=== PATIENT | female | born 1980 | race American Indian/Alaskan Native ===

== ENCOUNTER 2021-12-04 15:44 | Inpatient (IN) | payer MEDICAID ==
[2021-12-04] MEDS ORDERED: MORPHINE 4 MG/1 ML INJ IV ONE (15:55)
[2021-12-04] MEDS ORDERED: SODIUM CHLORIDE 0.9% 1000 ML 1,000 ML IV ONE (15:55)
[2021-12-04] MEDS ORDERED: ONDANSETRON 4 MG ODT TAB PO/SL ONE (15:55)
[2021-12-04] MEDS ORDERED: ONDANSETRON 4 MG/2 ML INJ IV ONE (16:13)
[2021-12-04] MEDS ORDERED: ONDANSETRON 4 MG/2 ML INJ ONE (16:14)
[2021-12-04 16:41] LABS: Hematocrit 37.6 % (30.3-42.9); Hemoglobin 12.9 gm/dl (10.1-14.3); Mean Corpuscular HGB Conc 34 % (30-34); Mean Corpuscular Volume 93 fl (79-97); Platelet Count 430 K/mm3 (140-440); Red Blood Count 4.05 M/mm3 (3.65-5.03); Red Cell Distribution Width 13.6 % (13.2-15.2)
[2021-12-04 16:48] LABS: INR 0.74 (0.87-1.13)
[2021-12-04 17:02] LABS: Alanine Aminotransferase 7 units/L (7-56); Albumin 4.3 g/dL (3.9-5); Blood Urea Nitrogen 4 mg/dL (7-17); Calcium 9.5 mg/dL (8.4-10.2); Hemolysis Index 1
[2021-12-04 17:03] LABS: BUN/Creatinine Ratio 7; Bilirubin,Direct < 0.2 mg/dL (0-0.2)
[2021-12-04] MEDS ORDERED: ERTAPENEM 1 GM in SODIUM CHLORIDE 0.9% 50 ML IV ONE (17:15)
--- NOTE | 2021-12-04 17:24 | Emergency Department Report ---
ED Abdominal Pain HPI - General Chief Complaint: Abdominal Pain Stated Complaint: ABD PAIN/N/V Time Seen by Provider: 12/04/21 15:55 Source: patient, EMS Mode of arrival: Wheelchair Limitations: No Limitations - History of Present Illness MD Complaint: abdominal pain -: Gradual, days(s) Location: RUQ Radiation: back Severity: moderate, severe Severity scale (0 -10): 10 Quality: aching, sharp Consistency: constant Improves With: eating Worsens With: eating Associated Symptoms: nausea, vomiting - Related Data Home Medications Medication Instructions Recorded Confirmed Last Taken No Known Home Medications [No 12/04/21 12/04/21 Unknown Reported Home Medications] Allergies Allergy/AdvReac Type Severity Reaction Status Date / Time No Known Allergies Allergy Verified 12/04/21 15:47 ED Review of Systems ROS: Stated complaint: ABD PAIN/N/V Other details as noted in HPI Constitutional: denies: chills, fever Eyes: denies: eye pain, eye discharge, vision change ENT: denies: ear pain, throat pain Respiratory: denies: cough, shortness of breath, wheezing Cardiovascular: denies: chest pain, palpitations Endocrine: no symptoms reported Gastrointestinal: denies: abdominal pain, nausea, diarrhea Genitourinary: denies: urgency, dysuria, discharge Musculoskeletal: denies: back pain, joint swelling, arthralgia Skin: denies: rash, lesions Neurological: denies: headache, weakness, paresthesias Psychiatric: denies: anxiety, depression Hematological/Lymphatic: denies: easy bleeding, easy bruising ED Past Medical Hx - Past Medical History Previous Medical History?: No Hx Hypertension: No - Social History Smoking Status: Unknown if ever smoked - Medications Home Medications: Home Medications Medication Instructions Recorded Confirmed Last Taken Type No Known Home Medications [No 12/04/21 12/04/21 Unknown History Reported Home Medications] ED Physical Exam - General Limitations: No Limitations General appearance: alert, in distress - Head Head exam: Present: atraumatic, normocephalic - Eye Eye exam: Present: normal appearance - ENT ENT exam: Present: mucous membranes moist - Neck Neck exam: Present: normal inspection - Respiratory Respiratory exam: Present: normal lung sounds bilaterally. Absent: respiratory distress - Cardiovascular Cardiovascular Exam: Present: regular rate, normal rhythm. Absent: systolic murmur, diastolic murmur, rubs, gallop - GI/Abdominal GI/Abdominal exam: Present: soft, tenderness, normal bowel sounds - Extremities Exam Extremities exam: Present: normal inspection - Back Exam Back exam: Present: normal inspection - Neurological Exam Neurological exam: Present: alert, oriented X3 - Psychiatric Psychiatric exam: Present: normal affect, normal mood - Skin Skin exam: Present: warm, dry, intact, normal color. Absent: rash ED Course Vital Signs 12/04/21 12/04/21 12/04/21 15:45 16:02 16:15 Temperature 99.1 F Pulse Rate 87 94 H Respiratory 18 19 Rate Blood Pressure 117/69 Blood Pressure 144/88 [Left] O2 Sat by Pulse 98 100 100 Oximetry - Reevaluation(s) Reevaluation #1: 12/04/21 17:22 work up showed elevated wbc , US showed gall stones, abx given , spoke with dr Landin ED Medical Decision Making - Lab Data Result diagrams: 12/04/21 16:03 12/04/21 16:03 Critical care attestation.: If time is entered above; I have spent that time in minutes in the direct care of this critically ill patient, excluding procedure time. ED Disposition Clinical Impression: Gall stones, Leukocytosis Disposition: ADMITTED INPATIENT Is pt being admited?: Yes Does the pt Need Aspirin: No Condition: Stable Instructions: Abdominal Pain (ED), Cholelithiasis
[2021-12-04 17:45] LABS: Band Neutrophils # (Manual) 0.2 K/mm3; Basophils % (Manual) 0 % (0.0-1.8); Eosinophils % (Manual) 0 % (0.0-4.3); Total Cells Counted 100
[2021-12-04 17:46] LABS: Platelet Clumps Rare; Platelet Estimate Consistent w Auto; RBC Morphology Normal
[2021-12-04] MEDS ORDERED: MORPHINE 2 MG/1 ML INJ IV ONE (17:59)
--- NOTE | 2021-12-04 18:02 | Ultrasound Report ---
ULTRASOUND ABDOMEN, LIMITED (RIGHT UPPER QUADRANT) INDICATION / CLINICAL INFORMATION: pain. COMPARISON: None available. FINDINGS: PANCREAS: Visualized portion shows no significant abnormality. LIVER: No significant abnormality. Hepatopedal flow within the portal vein. GALLBLADDER: Cholelithiasis. No pericholecystic fluid. BILE DUCTS: No significant abnormality. Common bile duct measures 2 mm. FREE FLUID: None. ADDITIONAL FINDINGS: None. IMPRESSION: 1. Cholelithiasis without cholecystitis. Signer Name: Ian Mackenzie DO Signed: 12/04/2021 5:57 PM Workstation Name: [id number]
--- NOTE | 2021-12-04 18:50 | Cat Scan Report ---
CT ABDOMEN AND PELVIS WITH CONTRAST INDICATION / CLINICAL INFORMATION: Unspecified abdominal pain. TECHNIQUE: Axial CT images were obtained through the abdomen and pelvis after 100 cc Omnipaque [address] scans at this location are performed using CT dose reduction for ALARA by means of automated exposure control. COMPARISON: None available. FINDINGS: LOWER CHEST: No significant abnormality. LIVER: There is an 8 mm lateral segment left hepatic lobe cyst on image 36 of series 2. No other sign ificant abnormality. GALLBLADDER: There is cholelithiasis without evidence of acute cholecystitis. BILE DUCTS: No significant abnormality. PANCREAS: No significant abnormality. SPLEEN: No significant abnormality. ADRENALS: No significant abnormality. RIGHT KIDNEY/URETER: No significant abnormality. LEFT KIDNEY/URETER: No significant abnormality. STOMACH/SMALL BOWEL: No significant abnormality. COLON: No significant abnormality. APPENDIX: No significant abnormality. PERITONEUM: No free fluid. No free air. No fluid collection. LYMPH NODES: No significant adenopathy. VASCULATURE: No significant abnormality. URINARY BLADDER: No significant abnormality. REPRODUCTIVE ORGANS: Multiple probable uterine fibroids are seen with a credit resolution representative mass located i nferiorly to the right of midline on image 118 of series 2 measuring up to 2.8 cm. No significant adn exal abnormality. ADDITIONAL FINDINGS: None. BONES: No significant abnormality IMPRESSION: 1. No acute abnormality of the abdomen or pelvis. 2. Cholelithiasis without evidence of acute cholecystitis. 3. Additional findings as above. Signer Name: Demar Calderon MD Signed: 12/04/2021 6:46 PM Workstation Name: [id number]
[2021-12-04] MEDS ORDERED: ACETAMINOPHEN 325 MG TAB PO PRN (18:54)
[2021-12-04] MEDS ORDERED: METOCLOPRAMIDE 10 MG/2 ML INJ IV PRN (18:54)
[2021-12-04] MEDS ORDERED: ONDANSETRON 4 MG/2 ML INJ IV PRN (18:54)
--- NOTE | 2021-12-04 19:36 | History and Physical Report ---
History of Present Illness Date of examination: 12/04/21 Date of admission: December 04, 2021 Chief complaint: Right upper quadrant pain for 2 days History of present illness: 41-year-old female with no significant past medical history and not on any medications presents with right upper quadrant pain since yesterday. Associated with nausea and vomiting. Vomited about 3-4 times. Pain is about 8 on a scale of 1-10. Sharp and intermittent in nature. Radiated to the flank. No fever or chills. In mild distress. No respiratory symptoms. No diarrhea. No shortness of breath. - Past Medical History No Past surgical history No - Social History Smoking Status: Unknown if ever smoked -Family history --Htn - Medications --Home Medications: Home Medications Medication Instructions Recorded Confirmed Last Taken Type No Known Home Medications [No 12/04/21 12/04/21 Unknown History Reported Home Medications] Review of Systems ROS: Stated complaint: ABD PAIN/N/V Other details as noted in HPI Constitutional: denies: chills, fever Eyes: denies: eye pain, eye discharge, vision change ENT: denies: ear pain, throat pain Respiratory: denies: cough, shortness of breath, wheezing Cardiovascular: denies: chest pain, palpitations Endocrine: no symptoms reported Gastrointestinal: denies: abdominal pain, nausea, diarrhea Genitourinary: denies: urgency, dysuria, discharge Musculoskeletal: denies: back pain, joint swelling, arthralgia Skin: denies: rash, lesions Neurological: denies: headache, weakness, paresthesias Psychiatric: denies: anxiety, depression Hematological/Lymphatic: denies: easy bleeding, easy bruising Medications and Allergies Allergies Allergy/AdvReac Type Severity Reaction Status Date / Time No Known Allergies Allergy Verified 12/04/21 15:47 Home Medications Medication Instructions Recorded Confirmed Last Taken Type No Known Home Medications [No 12/04/21 12/04/21 Unknown History Reported Home Medications] Exam - Constitutional Vitals: Temp Pulse Resp BP Pulse Ox 99.1 F 84 0 L 159/104 100 12/04/21 15:45 12/04/21 16:30 12/04/21 17:30 12/04/21 17:30 12/04/21 17:30 Results - Labs CBC & Chem 7: 12/05/21 05:44 12/05/21 05:44 Labs: Laboratory Last Values WBC 19.3 K/mm3 (4.5-11.0) H 12/04/21 16:03 RBC 4.05 M/mm3 (3.65-5.03) 12/04/21 16:03 Hgb 12.9 gm/dl (10.1-14.3) 12/04/21 16:03 Hct 37.6 % (30.3-42.9) 12/04/21 16:03 MCV 93 fl (79-97) 12/04/21 16:03 MCH 32 pg (28-32) 12/04/21 16:03 MCHC 34 % (30-34) 12/04/21 16:03 RDW 13.6 % (13.2-15.2) 12/04/21 16:03 Plt Count 430 K/mm3 (140-440) 12/04/21 16:03 Add Manual Diff Complete 12/04/21 16:03 Total Counted 100 12/04/21 16:03 Seg Neutrophils % Manufacturing Applications Engineer 12/04/21 16:03 Seg Neuts % (Manual) 89.0 % (40.0-70.0) H 12/04/21 16:03 Band Neutrophils % 1.0 % 12/04/21 16:03 Lymphocytes % (Manual) 8.0 % (13.4-35.0) L 12/04/21 16:03 Reactive Lymphs % (Man) 0 % 12/04/21 16:03 Monocytes % (Manual) 2.0 % (0.0-7.3) 12/04/21 16:03 Eosinophils % (Manual) 0 % (0.0-4.3) 12/04/21 16:03 Basophils % (Manual) 0 % (0.0-1.8) 12/04/21 16:03 Metamyelocytes % 0 % 12/04/21 16:03 Myelocytes % 0 % 12/04/21 16:03 Promyelocytes % 0 % 12/04/21 16:03 Blast Cells % 0 % 12/04/21 16:03 Nucleated RBC % Not Reportable 12/04/21 16:03 Seg Neutrophils # Man 17.2 K/mm3 (1.8-7.7) H 12/04/21 16:03 Band Neutrophils # 0.2 K/mm3 12/04/21 16:03 Lymphocytes # (Manual) 1.5 K/mm3 (1.2-5.4) 12/04/21 16:03 Abs React Lymphs (Man) 0.0 K/mm3 12/04/21 16:03 Monocytes # (Manual) 0.4 K/mm3 (0.0-0.8) 12/04/21 16:03 Eosinophils # (Manual) 0.0 K/mm3 (0.0-0.4) 12/04/21 16:03 Basophils # (Manual) 0.0 K/mm3 (0.0-0.1) 12/04/21 16:03 Metamyelocytes # 0.0 K/mm3 12/04/21 16:03 Myelocytes # 0.0 K/mm3 12/04/21 16:03 Promyelocytes # 0.0 K/mm3 12/04/21 16:03 Blast Cells # 0.0 K/mm3 12/04/21 16:03 WBC Morphology Not Reportable 12/04/21 16:03 Hypersegmented Neuts Not Reportable 12/04/21 16:03 Hyposegmented Neuts Not Reportable 12/04/21 16:03 Hypogranular Neuts Not Reportable 12/04/21 16:03 Smudge Cells Not Reportable 12/04/21 16:03 Toxic Granulation Not Reportable 12/04/21 16:03 Toxic Vacuolation Not Reportable 12/04/21 16:03 Dohle Bodies Not Reportable 12/04/21 16:03 Pelger-Huet Anomaly Not Reportable 12/04/21 16:03 Kimi Rods Not Reportable 12/04/21 16:03 Platelet Estimate Consistent w auto 12/04/21 16:03 Clumped Platelets Rare 12/04/21 16:03 Plt Clumps, EDTA Not Reportable 12/04/21 16:03 Large Platelets Not Reportable 12/04/21 16:03 Giant Platelets Not Reportable 12/04/21 16:03 Platelet Satelliting Not Reportable 12/04/21 16:03 Plt Morphology Comment Not Reportable 12/04/21 16:03 RBC Morphology Normal 12/04/21 16:03 Dimorphic RBCs Not Reportable 12/04/21 16:03 Polychromasia Not Reportable 12/04/21 16:03 Hypochromasia Not Reportable 12/04/21 16:03 Poikilocytosis Not Reportable 12/04/21 16:03 Anisocytosis Not Reportable 12/04/21 16:03 Microcytosis Not Reportable 12/04/21 16:03 Macrocytosis Not Reportable 12/04/21 16:03 Spherocytes Not Reportable 12/04/21 16:03 Pappenheimer Bodies Not Reportable 12/04/21 16:03 Sickle Cells Not Reportable 12/04/21 16:03 Target Cells Not Reportable 12/04/21 16:03 Tear Drop Cells Not Reportable 12/04/21 16:03 Ovalocytes Not Reportable 12/04/21 16:03 Helmet Cells Not Reportable 12/04/21 16:03 [place] Bodies Not Reportable 12/04/21 16:03 [place] Rings Not Reportable 12/04/21 16:03 Valente Cells Not Reportable 12/04/21 16:03 Bite Cells Not Reportable 12/04/21 16:03 Crenated Cell Not Reportable 12/04/21 16:03 Elliptocytes Not Reportable 12/04/21 16:03 Acanthocytes (Spur) Not Reportable 12/04/21 16:03 Rouleaux Not Reportable 12/04/21 16:03 Hemoglobin C Crystals Not Reportable 12/04/21 16:03 Schistocytes Not Reportable 12/04/21 16:03 Malaria parasites Not Reportable 12/04/21 16:03 Dima Bodies Not Reportable 12/04/21 16:03 Hem Pathologist Commnt No 12/04/21 16:03 PT 11.2 Sec. (12.2-14.9) L 12/04/21 16:03 INR 0.74 (0.87-1.13) L 12/04/21 16:03 Sodium 129 mmol/L (137-145) L 12/04/21 16:03 Potassium 3.8 mmol/L (3.6-5.0) 12/04/21 16:03 Chloride 95.5 mmol/L (98-107) L 12/04/21 16:03 Carbon Dioxide 18 mmol/L (22-30) L 12/04/21 16:03 Anion Gap 19 mmol/L 12/04/21 16:03 BUN 4 mg/dL (7-17) L 12/04/21 16:03 Creatinine 0.6 mg/dL (0.6-1.2) 12/04/21 16:03 Estimated GFR > 60 ml/min 12/04/21 16:03 BUN/Creatinine Ratio 7 % 12/04/21 16:03 Glucose 127 mg/dL (65-100) H 12/04/21 16:03 Calcium 9.5 mg/dL (8.4-10.2) 12/04/21 16:03 Total Bilirubin 0.40 mg/dL (0.1-1.2) 12/04/21 16:03 Direct Bilirubin < 0.2 mg/dL (0-0.2) 12/04/21 16:03 Indirect Bilirubin 0.2 mg/dL 12/04/21 16:03 AST 11 units/L (5-40) 12/04/21 16:03 ALT 7 units/L (7-56) 12/04/21 16:03 Alkaline Phosphatase 57 units/L (35-129) 12/04/21 16:03 C-Reactive Protein 0.20 mg/dL (0.00-1.30) 12/04/21 16:03 Total Protein 7.6 g/dL (6.3-8.2) 12/04/21 16:03 Albumin 4.3 g/dL (3.9-5) 12/04/21 16:03 Albumin/Globulin Ratio 1.3 % 12/04/21 16:03 Amylase 69 units/L (27-131) 12/04/21 16:03 Lipase 17 units/L (13-60) 12/04/21 16:03 HCG, Qual Negative (Negative) 12/04/21 16:03 Assessment and Plan Advance Directives: Yes (Full code) VTE prophylaxis?: Chemical Plan of care discussed with patient/family: Yes - Patient Problems (1) SIRS (systemic inflammatory response syndrome) Current Visit: Yes Status: Acute Plan to address problem: Patient has a high white count of 19,000 Patient initiated on IV Zosyn for intra-abdominal infection (2) Acute cholecystitis Current Visit: Yes Status: Acute Plan to address problem: Patient initiated on IV antibiotics Surgery consult for possible cholecystectomy (3) Hyponatremia Current Visit: Yes Status: Acute Plan to address problem: IV normal saline for now (4) DVT prophylaxis Current Visit: Yes Status: Acute Plan to address problem: On anticoagulation GI prophylaxis (5) Advance care planning Current Visit: Yes Status: Acute Plan to address problem: Disease education conducted, care plan discussed, diagnosis discussed, prognosis discussed with the patient. Patient is full code. Patient acknowledges understanding and agreement with care plan. +30 minutes.
[2021-12-04] MEDS: HYDROmorphone 1 MG/1 ML INJ IV PRN ×2 (19:46→23:49)
[2021-12-04 19:58] LABS: Bilirubin,Urine NEG (Negative); Color,Urine Yellow (Yellow); Protein,Urine <15 mg/dL mg/dL (Negative); Urobilinogen,Urine < 2.0 mg/dL (<2.0)
[2021-12-04 20:55] LABS: Bacteria,Urine 1+ /HPF (Negative); Blood,Urine LG (Negative); Mucus,Urine FEW /HPF
[2021-12-04 20:56] LABS: HCG Qualitative,Urine Negative (Negative)
[2021-12-04] MEDS: D5W/0.9% NACL 1,000 ML IV SCH (22:29)
[2021-12-04] MEDS: FAMOTIDINE 20 MG/2 ML INJ IV SCH (22:29)
[2021-12-04] MEDS: PIPERACIL/TAZOBACTA 4.5/NS 100 4.5 GM/100 ML VIAL IV SCH (22:29)
[2021-12-04] MEDS: HEPARIN 5,000 UNIT/1 ML VIAL SUB-Q SCH (22:30)
[2021-12-05] MEDS: HYDROmorphone 1 MG/1 ML INJ IV PRN ×3 (04:23→20:29)
[2021-12-05] MEDS: PIPERACIL/TAZOBACTA 4.5/NS 100 4.5 GM/100 ML VIAL IV SCH ×3 (05:30→22:56)
[2021-12-05 06:25] LABS: Basophils % (Auto) 0.2 % (0.0-1.8); Eosinophils % (Auto) 0.3 % (0.0-4.3); Hematocrit 34.9 % (30.3-42.9); Hemoglobin 12.2 gm/dl (10.1-14.3); Lymphocytes # (Auto) 1.8 K/mm3 (1.2-5.4); Lymphocytes % (Auto) 11.6 % (13.4-35.0); Mean Corpuscular HGB Conc 35 % (30-34); Mean Corpuscular Volume 93 fl (79-97); Monocytes # (Auto) 1.4 K/mm3 (0.0-0.8); Monocytes % (Auto) 8.7 % (0.0-7.3); Platelet Count 436 K/mm3 (140-440); Red Blood Count 3.77 M/mm3 (3.65-5.03); Red Cell Distribution Width 13.1 % (13.2-15.2)
[2021-12-05 06:40] LABS: Alanine Aminotransferase 11 units/L (7-56); Albumin 3.7 g/dL (3.9-5); Blood Urea Nitrogen 5 mg/dL (7-17); Calcium 8.7 mg/dL (8.4-10.2); Hemolysis Index 3
[2021-12-05 06:41] LABS: BUN/Creatinine Ratio 8
--- NOTE | 2021-12-05 07:44 | Consultation ---
History of Present Illness Consult date: 12/05/21 Reason for consult: gallstones Chief complaint: Acute cholecystitis with cholelithiasis and elevated white count - History of present illness History of present illness: 41-year-old female with no significant past medical history and not on any medications presents with right upper quadrant pain since yesterday. Associated with nausea and vomiting. Vomited about 3-4 times. No history of pancreatitis or yellow jaundice. Patient notes a similar episode of severe pain about a year ago. She did not present to the hospital at that time. Pain is about 8 on a scale of 1-10. Sharp and intermittent in nature. Radiated to the flank. No fever or chills. In mild distress. No respiratory symptoms. No diarrhea. No shortness of breath. Medications and Allergies Allergies Allergy/AdvReac Type Severity Reaction Status Date / Time No Known Allergies Allergy Verified 12/04/21 15:47 Home Medications Medication Instructions Recorded Confirmed Last Taken Type No Known Home Medications [No 12/04/21 12/04/21 Unknown History Reported Home Medications] Active Meds: Active Medications Acetaminophen (Acetaminophen 325 Mg Tab) 650 mg PO Q4H PRN PRN Reason: Pain MILD(1-3)/Fever >100.5/FLORES Famotidine (Famotidine 20 Mg/2 Ml Inj) 20 mg IV BID JOSH Last Admin: 12/04/21 22:29 Dose: 20 mg Heparin Sodium (Porcine) (Heparin 5,000 Unit/1 Ml Vial) 5,000 unit SUB-Q Q12HR JOSH Last Admin: 12/04/21 22:30 Dose: 5,000 unit Hydromorphone HCl (Hydromorphone 1 Mg/1 Ml Inj) 0.5 mg IV Q3H PRN PRN Reason: Pain , Severe (7-10) Last Admin: 12/05/21 04:23 Dose: 0.5 mg Dextrose/Sodium Chloride (D5ns) 1,000 mls @ 75 mls/hr IV DIRECT JOSH Last Admin: 12/04/21 22:29 Dose: 75 mls/hr Piperacillin Sod/Tazobactam Sod (Zosyn/Ns 4.5gm/100ml) 4.5 gm in 100 mls @ 200 mls/hr IV Q8HR JOSH; Protocol Last Admin: 12/05/21 05:30 Dose: 200 mls/hr Metoclopramide HCl (Metoclopramide 10 Mg/2 Ml Inj) 10 mg IV Q6H PRN PRN Reason: Nausea And Vomiting Morphine Sulfate (Morphine 2 Mg/1 Ml Inj) 2 mg IV Q4H PRN PRN Reason: Pain, Moderate (4-6) Ondansetron HCl (Ondansetron 4 Mg/2 Ml Inj) 4 mg IV Q3H PRN PRN Reason: Nausea And Vomiting Sodium Chloride (Sodium Chloride 0.9% 10 Ml Flush Syringe) 10 ml IV BID JOSH Last Admin: 12/04/21 22:30 Dose: 10 ml Sodium Chloride (Sodium Chloride 0.9% 10 Ml Flush Syringe) 10 ml IV PRN PRN PRN Reason: LINE FLUSH Exam Vital Signs Temp Pulse Resp BP Pulse Ox 99.1 F 87 18 144/88 98 12/04/21 15:45 12/04/21 15:45 12/04/21 15:45 12/04/21 15:45 12/04/21 15:45 - General physical appearance Positive: well developed - Eyes Positive: PERRL - Neck Positive: no masses, no bruits, trachea midline - Respiratory Positive: normal expansion - Cardiovascular Rhythm: regular - Extremities Extremities: no ischemia, No edema - Abdomen Abdomen: Present: tender, guarding, other (Positive Estrada sign right upper quadrant tenderness) Results - Labs 12/05/21 05:44 12/05/21 05:44 Abnormal lab results 12/04/21 12/04/21 12/04/21 Range/Units 16:03 16:03 16:03 WBC 19.3 H (4.5-11.0) K/mm3 MCHC (30-34) % RDW (13.2-15.2) % Lymph % (Auto) (13.4-35.0) % Jay % (Auto) (0.0-7.3) % Jay # (Auto) (0.0-0.8) K/mm3 Seg Neutrophils % (40.0-70.0) % Seg Neuts % (Manual) 89.0 H (40.0-70.0) % Lymphocytes % (Manual) 8.0 L (13.4-35.0) % Seg Neutrophils # (1.8-7.7) K/mm3 Seg Neutrophils # Man 17.2 H (1.8-7.7) K/mm3 PT 11.2 L (12.2-14.9) Sec. INR 0.74 L (0.87-1.13) Sodium 129 L (137-145) mmol/L Potassium (3.6-5.0) mmol/L Chloride 95.5 L (98-107) mmol/L Carbon Dioxide 18 L (22-30) mmol/L BUN 4 L (7-17) mg/dL Glucose 127 H (65-100) mg/dL Albumin (3.9-5) g/dL Urine pH (5.0-7.0) U Epithel Cells (Auto) (0-13.0) /HPF 12/04/21 12/05/21 12/05/21 Range/Units 19:38 05:44 05:44 WBC 15.9 H (4.5-11.0) K/mm3 MCHC 35 H (30-34) % RDW 13.1 L (13.2-15.2) % Lymph % (Auto) 11.6 L (13.4-35.0) % Jay % (Auto) 8.7 H (0.0-7.3) % Jay # (Auto) 1.4 H (0.0-0.8) K/mm3 Seg Neutrophils % 79.2 H (40.0-70.0) % Seg Neuts % (Manual) (40.0-70.0) % Lymphocytes % (Manual) (13.4-35.0) % Seg Neutrophils # 12.6 H (1.8-7.7) K/mm3 Seg Neutrophils # Man (1.8-7.7) K/mm3 PT (12.2-14.9) Sec. INR (0.87-1.13) Sodium 136 L D (137-145) mmol/L Potassium 3.4 L (3.6-5.0) mmol/L Chloride (98-107) mmol/L Carbon Dioxide (22-30) mmol/L BUN 5 L (7-17) mg/dL Glucose 112 H (65-100) mg/dL Albumin 3.7 L (3.9-5) g/dL Urine pH 8.0 H (5.0-7.0) U Epithel Cells (Auto) 107.0 H (0-13.0) /HPF Diabetes panel 12/04/21 12/05/21 Range/Units 16:03 05:44 Sodium 129 L 136 L D (137-145) mmol/L Potassium 3.8 3.4 L (3.6-5.0) mmol/L Chloride 95.5 L 101.8 (98-107) mmol/L Carbon Dioxide 18 L 22 (22-30) mmol/L BUN 4 L 5 L (7-17) mg/dL Creatinine 0.6 0.6 (0.6-1.2) mg/dL Glucose 127 H 112 H (65-100) mg/dL Calcium 9.5 8.7 (8.4-10.2) mg/dL AST 11 15 (5-40) units/L ALT 7 11 (7-56) units/L Alkaline Phosphatase 57 46 (35-129) units/L Total Protein 7.6 6.5 (6.3-8.2) g/dL Albumin 4.3 3.7 L (3.9-5) g/dL Calcium panel 12/04/21 12/05/21 Range/Units 16:03 05:44 Calcium 9.5 8.7 (8.4-10.2) mg/dL Albumin 4.3 3.7 L (3.9-5) g/dL Pituitary panel 12/04/21 12/05/21 Range/Units 16:03 05:44 Sodium 129 L 136 L D (137-145) mmol/L Potassium 3.8 3.4 L (3.6-5.0) mmol/L Chloride 95.5 L 101.8 (98-107) mmol/L Carbon Dioxide 18 L 22 (22-30) mmol/L BUN 4 L 5 L (7-17) mg/dL Creatinine 0.6 0.6 (0.6-1.2) mg/dL Glucose 127 H 112 H (65-100) mg/dL Calcium 9.5 8.7 (8.4-10.2) mg/dL Adrenal panel 12/04/21 12/05/21 Range/Units 16:03 05:44 Sodium 129 L 136 L D (137-145) mmol/L Potassium 3.8 3.4 L (3.6-5.0) mmol/L Chloride 95.5 L 101.8 (98-107) mmol/L Carbon Dioxide 18 L 22 (22-30) mmol/L BUN 4 L 5 L (7-17) mg/dL Creatinine 0.6 0.6 (0.6-1.2) mg/dL Glucose 127 H 112 H (65-100) mg/dL Calcium 9.5 8.7 (8.4-10.2) mg/dL Total Bilirubin 0.40 0.50 (0.1-1.2) mg/dL AST 11 15 (5-40) units/L ALT 7 11 (7-56) units/L Alkaline Phosphatase 57 46 (35-129) units/L Total Protein 7.6 6.5 (6.3-8.2) g/dL Albumin 4.3 3.7 L (3.9-5) g/dL Assessment and Plan Cholecystitis with cholelithiasis markedly elevated white count. Adv to clears then n.p.o. post midnight. continue continue IV antibiotics. Clinical signs of improvement are not seen patient will go to the OR in a.m.
[2021-12-05] MEDS ORDERED: SODIUM CHLORIDE 0.9% 1000 ML 1,000 ML IV SCH (08:00)
[2021-12-05] MEDS: HEPARIN 5,000 UNIT/1 ML VIAL SUB-Q SCH ×2 (09:21→22:56)
[2021-12-05] MEDS: FAMOTIDINE 20 MG/2 ML INJ IV SCH ×2 (09:21→22:56)
--- NOTE | 2021-12-05 11:27 | Progress Note ---
Assessment and Plan Assessment and plan: #Acute cholecystitis #Sepsis secondary to acute cholecystitis Heart rate 103, WBC 15.9 Abdominal ultrasound revealing cholelithiasis without acute cholecystitis General surgery consulted; appreciate recs Continue Zosyn 4.5 g every 8 hours Continue IV fluid resuscitation, antiemetics, and analgesics as needed Continue to monitor #Obesity #Weight loss counseling #Exercise counseling - BMI 32.1 - Counseled patient on the importance of weight loss, incorporating exercise, and dietary changes (lean meats, fresh fruits and vegetables, and water intake). Patient expresses understanding. - Time: +15 min #Advanced care planning -Disease education conducted, care plan discussed, diagnoses discussed, prognosis discussed, and patient acknowledges understanding with care plan -Time: +30 min Disposition Plan: Continue medical management Total Time Spent with Patient (Minutes): 30 minutes History Interval history: No acute events overnight. Hospitalist Physical - Constitutional Vitals: Temp Pulse Resp BP Pulse Ox 98.6 F 103 H 18 111/76 99 12/05/21 05:09 12/05/21 04:20 12/05/21 05:09 12/05/21 05:09 12/05/21 04:20 General appearance: Present: mild distress, well-nourished, obese - EENT Eyes: Present: PERRL, EOM intact ENT: hearing intact, clear oral mucosa, dentition normal - Neck Neck: Present: supple, normal ROM - Respiratory Respiratory effort: normal Respiratory: bilateral: CTA - Cardiovascular Rhythm: regular Heart Sounds: Present: S1 & S2 - Extremities Extremities: no ischemia, pulses intact, pulses symmetrical, No edema, normal temperature, normal color, Full ROM Peripheral Pulses: within normal limits - Abdominal General gastrointestinal: soft, tender, non-distended, normal bowel sounds Localized gastrointestinal: tender: RUQ - Integumentary Integumentary: Present: clear, warm, dry - Psychiatric Psychiatric: appropriate mood/affect, intact judgment & insight, memory intact, cooperative - Neurologic Neurologic: CNII-XII intact, moves all extremities - Allied Health Allied health notes reviewed: nursing Results - Labs CBC & Chem 7: 12/05/21 05:44 12/05/21 05:44 Labs: Laboratory Last Values WBC 15.9 K/mm3 (4.5-11.0) H 12/05/21 05:44 RBC 3.77 M/mm3 (3.65-5.03) 12/05/21 05:44 Hgb 12.2 gm/dl (10.1-14.3) 12/05/21 05:44 Hct 34.9 % (30.3-42.9) 12/05/21 05:44 MCV 93 fl (79-97) 12/05/21 05:44 MCH 32 pg (28-32) 12/05/21 05:44 MCHC 35 % (30-34) H 12/05/21 05:44 RDW 13.1 % (13.2-15.2) L 12/05/21 05:44 Plt Count 436 K/mm3 (140-440) 12/05/21 05:44 Lymph % (Auto) 11.6 % (13.4-35.0) L 12/05/21 05:44 [place] % (Auto) 8.7 % (0.0-7.3) H 12/05/21 05:44 Eos % (Auto) 0.3 % (0.0-4.3) 12/05/21 05:44 Baso % (Auto) 0.2 % (0.0-1.8) 12/05/21 05:44 Lymph # (Auto) 1.8 K/mm3 (1.2-5.4) 12/05/21 05:44 [place] # (Auto) 1.4 K/mm3 (0.0-0.8) H 12/05/21 05:44 Eos # (Auto) 0.0 K/mm3 (0.0-0.4) 12/05/21 05:44 Baso # (Auto) 0.0 K/mm3 (0.0-0.1) 12/05/21 05:44 Add Manual Diff Complete 12/04/21 16:03 Total Counted 100 12/04/21 16:03 Seg Neutrophils % 79.2 % (40.0-70.0) H 12/05/21 05:44 Seg Neuts % (Manual) 89.0 % (40.0-70.0) H 12/04/21 16:03 Band Neutrophils % 1.0 % 12/04/21 16:03 Lymphocytes % (Manual) 8.0 % (13.4-35.0) L 12/04/21 16:03 Reactive Lymphs % (Man) 0 % 12/04/21 16:03 Monocytes % (Manual) 2.0 % (0.0-7.3) 12/04/21 16:03 Eosinophils % (Manual) 0 % (0.0-4.3) 12/04/21 16:03 Basophils % (Manual) 0 % (0.0-1.8) 12/04/21 16:03 Metamyelocytes % 0 % 12/04/21 16:03 Myelocytes % 0 % 12/04/21 16:03 Promyelocytes % 0 % 12/04/21 16:03 Blast Cells % 0 % 12/04/21 16:03 Nucleated RBC % Not Reportable 12/04/21 16:03 Seg Neutrophils # 12.6 K/mm3 (1.8-7.7) H 12/05/21 05:44 Seg Neutrophils # Man 17.2 K/mm3 (1.8-7.7) H 12/04/21 16:03 Band Neutrophils # 0.2 K/mm3 12/04/21 16:03 Lymphocytes # (Manual) 1.5 K/mm3 (1.2-5.4) 12/04/21 16:03 Abs React Lymphs (Man) 0.0 K/mm3 12/04/21 16:03 Monocytes # (Manual) 0.4 K/mm3 (0.0-0.8) 12/04/21 16:03 Eosinophils # (Manual) 0.0 K/mm3 (0.0-0.4) 12/04/21 16:03 Basophils # (Manual) 0.0 K/mm3 (0.0-0.1) 12/04/21 16:03 Metamyelocytes # 0.0 K/mm3 12/04/21 16:03 Myelocytes # 0.0 K/mm3 12/04/21 16:03 Promyelocytes # 0.0 K/mm3 12/04/21 16:03 Blast Cells # 0.0 K/mm3 12/04/21 16:03 WBC Morphology Not Reportable 12/04/21 16:03 Hypersegmented Neuts Not Reportable 12/04/21 16:03 Hyposegmented Neuts Not Reportable 12/04/21 16:03 Hypogranular Neuts Not Reportable 12/04/21 16:03 Smudge Cells Not Reportable 12/04/21 16:03 Toxic Granulation Not Reportable 12/04/21 16:03 Toxic Vacuolation Not Reportable 12/04/21 16:03 Dohle Bodies Not Reportable 12/04/21 16:03 Pelger-Huet Anomaly Not Reportable 12/04/21 16:03 Kimi Rods Not Reportable 12/04/21 16:03 Platelet Estimate Consistent w auto 12/04/21 16:03 Clumped Platelets Rare 12/04/21 16:03 Plt Clumps, EDTA Not Reportable 12/04/21 16:03 Large Platelets Not Reportable 12/04/21 16:03 Giant Platelets Not Reportable 12/04/21 16:03 Platelet Satelliting Not Reportable 12/04/21 16:03 Plt Morphology Comment Not Reportable 12/04/21 16:03 RBC Morphology Normal 12/04/21 16:03 Dimorphic RBCs Not Reportable 12/04/21 16:03 Polychromasia Not Reportable 12/04/21 16:03 Hypochromasia Not Reportable 12/04/21 16:03 Poikilocytosis Not Reportable 12/04/21 16:03 Anisocytosis Not Reportable 12/04/21 16:03 Microcytosis Not Reportable 12/04/21 16:03 Macrocytosis Not Reportable 12/04/21 16:03 Spherocytes Not Reportable 12/04/21 16:03 Pappenheimer Bodies Not Reportable 12/04/21 16:03 Sickle Cells Not Reportable 12/04/21 16:03 Target Cells Not Reportable 12/04/21 16:03 Tear Drop Cells Not Reportable 12/04/21 16:03 Ovalocytes Not Reportable 12/04/21 16:03 Helmet Cells Not Reportable 12/04/21 16:03 [place] Bodies Not Reportable 12/04/21 16:03 [place] Rings Not Reportable 12/04/21 16:03 [place] Cells Not Reportable 12/04/21 16:03 Bite Cells Not Reportable 12/04/21 16:03 Crenated Cell Not Reportable 12/04/21 16:03 Elliptocytes Not Reportable 12/04/21 16:03 Acanthocytes (Spur) Not Reportable 12/04/21 16:03 Rouleaux Not Reportable 12/04/21 16:03 Hemoglobin C Crystals Not Reportable 12/04/21 16:03 Schistocytes Not Reportable 12/04/21 16:03 Malaria parasites Not Reportable 12/04/21 16:03 Dima Bodies Not Reportable 12/04/21 16:03 Hem Pathologist Commnt No 12/04/21 16:03 PT 11.2 Sec. (12.2-14.9) L 12/04/21 16:03 INR 0.74 (0.87-1.13) L 12/04/21 16:03 Sodium 136 mmol/L (137-145) L D 12/05/21 05:44 Potassium 3.4 mmol/L (3.6-5.0) L 12/05/21 05:44 Chloride 101.8 mmol/L (98-107) 12/05/21 05:44 Carbon Dioxide 22 mmol/L (22-30) 12/05/21 05:44 Anion Gap 16 mmol/L 12/05/21 05:44 BUN 5 mg/dL (7-17) L 12/05/21 05:44 Creatinine 0.6 mg/dL (0.6-1.2) 12/05/21 05:44 Estimated GFR > 60 ml/min 12/05/21 05:44 BUN/Creatinine Ratio 8 % 12/05/21 05:44 Glucose 112 mg/dL (65-100) H 12/05/21 05:44 Calcium 8.7 mg/dL (8.4-10.2) 12/05/21 05:44 Total Bilirubin 0.50 mg/dL (0.1-1.2) 12/05/21 05:44 Direct Bilirubin < 0.2 mg/dL (0-0.2) 12/04/21 16:03 Indirect Bilirubin 0.2 mg/dL 12/04/21 16:03 AST 15 units/L (5-40) 12/05/21 05:44 ALT 11 units/L (7-56) 12/05/21 05:44 Alkaline Phosphatase 46 units/L (35-129) 12/05/21 05:44 C-Reactive Protein 0.20 mg/dL (0.00-1.30) 12/04/21 16:03 Total Protein 6.5 g/dL (6.3-8.2) 12/05/21 05:44 Albumin 3.7 g/dL (3.9-5) L 12/05/21 05:44 Albumin/Globulin Ratio 1.3 % 12/05/21 05:44 Amylase 69 units/L (27-131) 12/04/21 16:03 Lipase 17 units/L (13-60) 12/04/21 16:03 HCG, Qual Negative (Negative) 12/04/21 16:03 Urine Color Yellow (Yellow) 12/04/21 19:38 Urine Turbidity Cloudy (Clear) 12/04/21 19:38 Urine pH 8.0 (5.0-7.0) H 12/04/21 19:38 Ur Specific [place] 1.021 (1.003-1.030) 12/04/21 19:38 Urine Protein <15 mg/dl mg/dL (Negative) 12/04/21 19:38 Urine Glucose (UA) 50 mg/dL (Negative) 12/04/21 19:38 Urine Ketones Neg mg/dL (Negative) 12/04/21 19:38 Urine Blood Lg (Negative) 12/04/21 19:38 Urine Nitrite Neg (Negative) 12/04/21 19:38 Urine Bilirubin Neg (Negative) 12/04/21 19:38 Urine Urobilinogen < 2.0 mg/dL (<2.0) 12/04/21 19:38 Ur Leukocyte Esterase Tr (Negative) 12/04/21 19:38 Urine WBC (Auto) 6.0 /HPF (0.0-6.0) 12/04/21 19:38 Urine RBC (Auto) 1.0 /HPF (0.0-6.0) 12/04/21 19:38 U Epithel Cells (Auto) 107.0 /HPF (0-13.0) H 12/04/21 19:38 Urine Bacteria (Auto) 1+ /HPF (Negative) 12/04/21 19:38 Urine Mucus Few /HPF 12/04/21 19:38 Urine HCG, Qual Negative (Negative) 12/04/21 19:38 Fatima/IV: Voiding Method Toilet Active Medications - Current Medications Current Medications: Generic Name Dose Route Start Last Admin Trade Name Freq PRN Reason Stop Dose Admin Acetaminophen 650 mg 12/04/21 18:54 Acetaminophen 325 Mg Tab PO Q4H PRN Pain MILD(1-3)/Fever >100.5/FLORES Famotidine 20 mg 12/04/21 22:00 12/05/21 09:21 Famotidine 20 Mg/2 Ml Inj IV 20 mg BID JOSH Administration Heparin Sodium (Porcine) 5,000 unit 12/04/21 22:00 12/05/21 09:21 Heparin 5,000 Unit/1 Ml Vial SUB-Q 5,000 unit Q12HR JOSH Administration Hydromorphone HCl 0.5 mg 12/04/21 18:54 12/05/21 09:21 Hydromorphone 1 Mg/1 Ml Inj IV 0.5 mg Q3H PRN Administration Pain , Severe (7-10) Dextrose/Sodium Chloride 1,000 mls @ 75 mls/hr 12/04/21 19:00 12/04/21 22:29 D5ns IV 75 mls/hr DIRECT JOSH Administration Piperacillin Sod/Tazobactam Sod 4.5 gm in 100 mls @ 200 mls/hr 12/04/21 22:00 12/05/21 05:30 Zosyn/Ns 4.5gm/100ml IV 200 mls/hr Q8HR JOSH Administration Protocol Metoclopramide HCl 10 mg 12/04/21 18:54 Metoclopramide 10 Mg/2 Ml Inj IV Q6H PRN Nausea And Vomiting Morphine Sulfate 2 mg 12/04/21 18:54 Morphine 2 Mg/1 Ml Inj IV Q4H PRN Pain, Moderate (4-6) Ondansetron HCl 4 mg 12/04/21 18:54 Ondansetron 4 Mg/2 Ml Inj IV Q3H PRN Nausea And Vomiting Sodium Chloride 10 ml 12/04/21 22:00 12/04/21 22:30 Sodium Chloride 0.9% 10 Ml Flush Syringe IV 10 ml BID JOSH Administration Sodium Chloride 10 ml 12/04/21 18:54 Sodium Chloride 0.9% 10 Ml Flush Syringe IV PRN PRN LINE FLUSH
[2021-12-05] MEDS: D5W/0.9% NACL 1,000 ML IV SCH (21:05)
[2021-12-06] MEDS: PIPERACIL/TAZOBACTA 4.5/NS 100 4.5 GM/100 ML VIAL IV SCH ×3 (05:39→21:03)
[2021-12-06] MEDS: MORPHINE 2 MG/1 ML INJ IV PRN ×3 (05:42→21:13)
[2021-12-06 06:06] LABS: Basophils # (Auto) 0.1 K/mm3 (0.0-0.1); Basophils % (Auto) 0.7 % (0.0-1.8); Eosinophils # (Auto) 0.2 K/mm3 (0.0-0.4); Eosinophils % (Auto) 1.8 % (0.0-4.3); Hematocrit 34.2 % (30.3-42.9); Hemoglobin 11.6 gm/dl (10.1-14.3); Lymphocytes # (Auto) 2.2 K/mm3 (1.2-5.4); Lymphocytes % (Auto) 23.4 % (13.4-35.0); Mean Corpuscular HGB Conc 34 % (30-34); Mean Corpuscular Volume 93 fl (79-97); Monocytes # (Auto) 0.8 K/mm3 (0.0-0.8); Monocytes % (Auto) 8.2 % (0.0-7.3); Platelet Count 371 K/mm3 (140-440); Red Blood Count 3.68 M/mm3 (3.65-5.03); Red Cell Distribution Width 13.7 % (13.2-15.2)
[2021-12-06 06:14] LABS: INR 0.97 (0.87-1.13)
[2021-12-06 06:22] LABS: Blood Urea Nitrogen 4 mg/dL (7-17); Calcium 8.4 mg/dL (8.4-10.2); Hemolysis Index 5
[2021-12-06 06:23] LABS: BUN/Creatinine Ratio 6
[2021-12-06] MEDS ORDERED: BUPIVACAINE/PF (0.5%) 5 MG/1 ML 30 ML VIAL INFILTRATI ONE (07:20)
[2021-12-06] MEDS ORDERED: LIDOCAINE (1%) 10 MG/1 ML VIAL 20 ML MDV ONE (07:20)
[2021-12-06] MEDS ORDERED: dexAMETHasone 20 MG/5 ML VIAL ONE (07:22)
[2021-12-06] MEDS ORDERED: ROCURONIUM 50 MG/5 ML INJ IV ONE (07:22)
[2021-12-06] MEDS ORDERED: ONDANSETRON 4 MG/2 ML INJ ONE (07:22)
[2021-12-06] MEDS ORDERED: fentaNYL 100 MCG/2 ML INJ ONE (07:23)
[2021-12-06] MEDS ORDERED: propofoL 200 MG/20 ML VIAL IV ONE (07:23)
[2021-12-06] MEDS ORDERED: LACTATED RINGERS 1,000 ML ONE (07:24)
[2021-12-06] MEDS ORDERED: ONDANSETRON 4 MG/2 ML INJ IV PRN (07:36)
--- NOTE | 2021-12-06 07:38 | Anesthesia Consultation ---
Anesthesia Consult and Med Hx Date of service: 12/06/21 - Airway Anesthetic Teeth Evaluation: Good, Chipped ROM Head & Neck: Adequate Mental/Hyoid Distance: Adequate Mallampati Class: Class III Intubation Access Assessment: Possibly Difficult - Pre-Operative Health Status ASA Pre-Surgery Classification: ASA2 Proposed Anesthetic Plan: General - Pulmonary Hx Smoking: Yes Hx Respiratory Symptoms: No - Cardiovascular System Hx Hypertension: No - Endocrine Hx Renal Disease: No Hx Liver Disease: No Hx Insulin Dependent Diabetes: No Hx Non-Insulin Dependent Diabetes: No Hx Thyroid Disease: No - Other Systems Hx Obesity: No
--- NOTE | 2021-12-06 07:38 | Anesthesia Day of Surgery ---
Anesthesia Day of Surgery - Day of Surgery Patient Examined: Yes Patient H&P Reviewed: Yes Patient is NPO: Yes
[2021-12-06] MEDS: LACTATED RINGERS 1,000 ML IV SCH ×2 (07:55→21:21)
[2021-12-06] MEDS ORDERED: MIDAZOLAM 2 MG/2 ML INJ ONE (07:55)
[2021-12-06] MEDS ORDERED: MIDAZOLAM 2 MG/2 ML INJ IV NR (08:00)
[2021-12-06] MEDS ORDERED: SCOPOLAMINE TRANSDERMAL PATCH 72 HR TD NR (08:00)
--- NOTE | 2021-12-06 08:18 | Progress Note ---
Hospitalist Physical - Constitutional Vitals: Temp Pulse Resp BP Pulse Ox 98.5 F 78 18 127/87 97 12/06/21 05:16 12/06/21 05:16 12/06/21 05:16 12/06/21 05:16 12/06/21 05:16 General appearance: Present: mild distress, well-nourished, obese Results - Labs CBC & Chem 7: 12/06/21 05:27 12/06/21 05:27 Labs: Laboratory Last Values WBC 9.4 K/mm3 (4.5-11.0) 12/06/21 05:27 RBC 3.68 M/mm3 (3.65-5.03) 12/06/21 05:27 Hgb 11.6 gm/dl (10.1-14.3) 12/06/21 05:27 Hct 34.2 % (30.3-42.9) 12/06/21 05:27 MCV 93 fl (79-97) 12/06/21 05:27 MCH 32 pg (28-32) 12/06/21 05:27 MCHC 34 % (30-34) 12/06/21 05:27 RDW 13.7 % (13.2-15.2) 12/06/21 05:27 Plt Count 371 K/mm3 (140-440) 12/06/21 05:27 Lymph % (Auto) 23.4 % (13.4-35.0) 12/06/21 05:27 [place] % (Auto) 8.2 % (0.0-7.3) H 12/06/21 05:27 Eos % (Auto) 1.8 % (0.0-4.3) 12/06/21 05:27 Baso % (Auto) 0.7 % (0.0-1.8) 12/06/21 05:27 Lymph # (Auto) 2.2 K/mm3 (1.2-5.4) 12/06/21 05:27 [place] # (Auto) 0.8 K/mm3 (0.0-0.8) 12/06/21 05:27 Eos # (Auto) 0.2 K/mm3 (0.0-0.4) 12/06/21 05:27 Baso # (Auto) 0.1 K/mm3 (0.0-0.1) 12/06/21 05:27 Add Manual Diff Complete 12/04/21 16:03 Total Counted 100 12/04/21 16:03 Seg Neutrophils % 65.9 % (40.0-70.0) 12/06/21 05:27 Seg Neuts % (Manual) 89.0 % (40.0-70.0) H 12/04/21 16:03 Band Neutrophils % 1.0 % 12/04/21 16:03 Lymphocytes % (Manual) 8.0 % (13.4-35.0) L 12/04/21 16:03 Reactive Lymphs % (Man) 0 % 12/04/21 16:03 Monocytes % (Manual) 2.0 % (0.0-7.3) 12/04/21 16:03 Eosinophils % (Manual) 0 % (0.0-4.3) 12/04/21 16:03 Basophils % (Manual) 0 % (0.0-1.8) 12/04/21 16:03 Metamyelocytes % 0 % 12/04/21 16:03 Myelocytes % 0 % 12/04/21 16:03 Promyelocytes % 0 % 12/04/21 16:03 Blast Cells % 0 % 12/04/21 16:03 Nucleated RBC % Not Reportable 12/04/21 16:03 Seg Neutrophils # 6.2 K/mm3 (1.8-7.7) 12/06/21 05:27 Seg Neutrophils # Man 17.2 K/mm3 (1.8-7.7) H 12/04/21 16:03 Band Neutrophils # 0.2 K/mm3 12/04/21 16:03 Lymphocytes # (Manual) 1.5 K/mm3 (1.2-5.4) 12/04/21 16:03 Abs React Lymphs (Man) 0.0 K/mm3 12/04/21 16:03 Monocytes # (Manual) 0.4 K/mm3 (0.0-0.8) 12/04/21 16:03 Eosinophils # (Manual) 0.0 K/mm3 (0.0-0.4) 12/04/21 16:03 Basophils # (Manual) 0.0 K/mm3 (0.0-0.1) 12/04/21 16:03 Metamyelocytes # 0.0 K/mm3 12/04/21 16:03 Myelocytes # 0.0 K/mm3 12/04/21 16:03 Promyelocytes # 0.0 K/mm3 12/04/21 16:03 Blast Cells # 0.0 K/mm3 12/04/21 16:03 WBC Morphology Not Reportable 12/04/21 16:03 Hypersegmented Neuts Not Reportable 12/04/21 16:03 Hyposegmented Neuts Not Reportable 12/04/21 16:03 Hypogranular Neuts Not Reportable 12/04/21 16:03 Smudge Cells Not Reportable 12/04/21 16:03 Toxic Granulation Not Reportable 12/04/21 16:03 Toxic Vacuolation Not Reportable 12/04/21 16:03 Dohle Bodies Not Reportable 12/04/21 16:03 Pelger-Huet Anomaly Not Reportable 12/04/21 16:03 Kimi Rods Not Reportable 12/04/21 16:03 Platelet Estimate Consistent w auto 12/04/21 16:03 Clumped Platelets Rare 12/04/21 16:03 Plt Clumps, EDTA Not Reportable 12/04/21 16:03 Large Platelets Not Reportable 12/04/21 16:03 Giant Platelets Not Reportable 12/04/21 16:03 Platelet Satelliting Not Reportable 12/04/21 16:03 Plt Morphology Comment Not Reportable 12/04/21 16:03 RBC Morphology Normal 12/04/21 16:03 Dimorphic RBCs Not Reportable 12/04/21 16:03 Polychromasia Not Reportable 12/04/21 16:03 Hypochromasia Not Reportable 12/04/21 16:03 Poikilocytosis Not Reportable 12/04/21 16:03 Anisocytosis Not Reportable 12/04/21 16:03 Microcytosis Not Reportable 12/04/21 16:03 Macrocytosis Not Reportable 12/04/21 16:03 Spherocytes Not Reportable 12/04/21 16:03 Pappenheimer Bodies Not Reportable 12/04/21 16:03 Sickle Cells Not Reportable 12/04/21 16:03 Target Cells Not Reportable 12/04/21 16:03 Tear Drop Cells Not Reportable 12/04/21 16:03 Ovalocytes Not Reportable 12/04/21 16:03 Helmet Cells Not Reportable 12/04/21 16:03 [place] Bodies Not Reportable 12/04/21 16:03 [place] Rings Not Reportable 12/04/21 16:03 [place] Cells Not Reportable 12/04/21 16:03 Bite Cells Not Reportable 12/04/21 16:03 Crenated Cell Not Reportable 12/04/21 16:03 Elliptocytes Not Reportable 12/04/21 16:03 Acanthocytes (Spur) Not Reportable 12/04/21 16:03 Rouleaux Not Reportable 12/04/21 16:03 Hemoglobin C Crystals Not Reportable 12/04/21 16:03 Schistocytes Not Reportable 12/04/21 16:03 Malaria parasites Not Reportable 12/04/21 16:03 Dima Bodies Not Reportable 12/04/21 16:03 Hem Pathologist Commnt No 12/04/21 16:03 PT 14.0 Sec. (12.2-14.9) 12/06/21 05:27 INR 0.97 (0.87-1.13) 12/06/21 05:27 Sodium 138 mmol/L (137-145) 12/06/21 05:27 Potassium 3.3 mmol/L (3.6-5.0) L 12/06/21 05:27 Chloride 105.5 mmol/L (98-107) 12/06/21 05:27 Carbon Dioxide 25 mmol/L (22-30) 12/06/21 05:27 Anion Gap 11 mmol/L 12/06/21 05:27 BUN 4 mg/dL (7-17) L 12/06/21 05:27 Creatinine 0.7 mg/dL (0.6-1.2) 12/06/21 05:27 Estimated GFR > 60 ml/min 12/06/21 05:27 BUN/Creatinine Ratio 6 % 12/06/21 05:27 Glucose 90 mg/dL (65-100) 12/06/21 05:27 Calcium 8.4 mg/dL (8.4-10.2) 12/06/21 05:27 Total Bilirubin 0.50 mg/dL (0.1-1.2) 12/05/21 05:44 Direct Bilirubin < 0.2 mg/dL (0-0.2) 12/04/21 16:03 Indirect Bilirubin 0.2 mg/dL 12/04/21 16:03 AST 15 units/L (5-40) 12/05/21 05:44 ALT 11 units/L (7-56) 12/05/21 05:44 Alkaline Phosphatase 46 units/L (35-129) 12/05/21 05:44 C-Reactive Protein 0.20 mg/dL (0.00-1.30) 12/04/21 16:03 Total Protein 6.5 g/dL (6.3-8.2) 12/05/21 05:44 Albumin 3.7 g/dL (3.9-5) L 12/05/21 05:44 Albumin/Globulin Ratio 1.3 % 12/05/21 05:44 Amylase 69 units/L (27-131) 12/04/21 16:03 Lipase 17 units/L (13-60) 12/04/21 16:03 HCG, Qual Negative (Negative) 12/04/21 16:03 Urine Color Yellow (Yellow) 12/04/21 19:38 Urine Turbidity Cloudy (Clear) 12/04/21 19:38 Urine pH 8.0 (5.0-7.0) H 12/04/21 19:38 Ur Specific [place] 1.021 (1.003-1.030) 12/04/21 19:38 Urine Protein <15 mg/dl mg/dL (Negative) 12/04/21 19:38 Urine Glucose (UA) 50 mg/dL (Negative) 12/04/21 19:38 Urine Ketones Neg mg/dL (Negative) 12/04/21 19:38 Urine Blood Lg (Negative) 12/04/21 19:38 Urine Nitrite Neg (Negative) 12/04/21 19:38 Urine Bilirubin Neg (Negative) 12/04/21 19:38 Urine Urobilinogen < 2.0 mg/dL (<2.0) 12/04/21 19:38 Ur Leukocyte Esterase Tr (Negative) 12/04/21 19:38 Urine WBC (Auto) 6.0 /HPF (0.0-6.0) 12/04/21 19:38 Urine RBC (Auto) 1.0 /HPF (0.0-6.0) 12/04/21 19:38 U Epithel Cells (Auto) 107.0 /HPF (0-13.0) H 12/04/21 19:38 Urine Bacteria (Auto) 1+ /HPF (Negative) 12/04/21 19:38 Urine Mucus Few /HPF 12/04/21 19:38 Urine HCG, Qual Negative (Negative) 12/04/21 19:38 Fatima/IV: Voiding Method Toilet Active Medications - Current Medications Current Medications: Generic Name Dose Route Start Last Admin Trade Name Freq PRN Reason Stop Dose Admin Acetaminophen 650 mg 12/04/21 18:54 Acetaminophen 325 Mg Tab PO Q4H PRN Pain MILD(1-3)/Fever >100.5/FLORES Famotidine 20 mg 12/04/21 22:00 12/05/21 22:56 Famotidine 20 Mg/2 Ml Inj IV 20 mg BID JOSH Administration Heparin Sodium (Porcine) 5,000 unit 12/04/21 22:00 12/05/21 22:56 Heparin 5,000 Unit/1 Ml Vial SUB-Q 5,000 unit Q12HR JOSH Administration Hydromorphone HCl 0.5 mg 12/04/21 18:54 12/05/21 20:29 Hydromorphone 1 Mg/1 Ml Inj IV 0.5 mg Q3H PRN Administration Pain , Severe (7-10) Hydromorphone HCl 0.5 mg 12/06/21 07:36 Hydromorphone 1 Mg/1 Ml Inj IV 12/06/21 23:00 Q10MIN PRN Pain , Severe (7-10) Dextrose/Sodium Chloride 1,000 mls @ 75 mls/hr 12/04/21 19:00 12/05/21 21:05 D5ns IV 75 mls/hr DIRECT JOSH Administration Piperacillin Sod/Tazobactam Sod 4.5 gm in 100 mls @ 200 mls/hr 12/04/21 22:00 12/06/21 05:39 Zosyn/Ns 4.5gm/100ml IV 200 mls/hr Q8HR JOSH Administration Protocol Lactated Ringer's 1,000 mls @ 100 mls/hr 12/06/21 07:45 Lactated Ringers IV 12/07/21 07:44 DIRECT JOSH Metoclopramide HCl 10 mg 12/04/21 18:54 Metoclopramide 10 Mg/2 Ml Inj IV Q6H PRN Nausea And Vomiting Midazolam HCl 2 mg 12/06/21 08:00 Midazolam 2 Mg/2 Ml Inj IV 12/06/21 23:59 PREOP NR Morphine Sulfate 2 mg 12/04/21 18:54 12/06/21 05:42 Morphine 2 Mg/1 Ml Inj IV 2 mg Q4H PRN Administration Pain, Moderate (4-6) Ondansetron HCl 4 mg 12/04/21 18:54 Ondansetron 4 Mg/2 Ml Inj IV Q3H PRN Nausea And Vomiting Ondansetron HCl 4 mg 12/06/21 07:36 Ondansetron 4 Mg/2 Ml Inj IV 12/06/21 18:00 ONCE PRN Nausea And Vomiting Scopolamine 1 each 12/06/21 08:00 Scopolamine Transdermal Patch 72 Hr TD 12/06/21 18:00 PREOP NR Sodium Chloride 10 ml 12/04/21 22:00 12/05/21 22:56 Sodium Chloride 0.9% 10 Ml Flush Syringe IV 10 ml BID JOSH Administration Sodium Chloride 10 ml 12/04/21 18:54 Sodium Chloride 0.9% 10 Ml Flush Syringe IV PRN PRN LINE FLUSH
[2021-12-06] MEDS: HEPARIN 5,000 UNIT/1 ML VIAL SUB-Q SCH ×2 (09:00→21:04)
[2021-12-06] MEDS ORDERED: HYDROmorphone 1 MG/1 ML INJ ONE (09:00)
[2021-12-06] MEDS ORDERED: POTASSIUM CHLORIDE ER 20 MEQ TAB PO NR (09:00)
[2021-12-06] MEDS ORDERED: LIDOCAINE (1%) 10 MG/1 ML VIAL 20 ML MDV INFILTRATI ONE (09:03)
[2021-12-06] MEDS ORDERED: SODIUM CHLORIDE 0.9% IRR 1,500 ML BOTTLE IR ONE (09:03)
[2021-12-06] MEDS ORDERED: BUPIVACAINE/PF (0.5%) 5 MG/1 ML 10 ML VIAL INFILTRATI ONE (09:03)
[2021-12-06] MEDS ORDERED: NEOSTIGMINE 10MG/10 ML INJ MDV ONE (09:22)
[2021-12-06] MEDS ORDERED: GLYCOPYRROLATE 0.4 MG/2 ML INJ ONE (09:22)
--- NOTE | 2021-12-06 09:28 | Operative Report ---
Operative Report Operative Report: Date:12/06/21 Preop diagnosis: cholecystitis with cholelithiasis Postop diagnosis: same, with empyema of gall bladder Procedure: Laparoscopic cholecystectomy without cholangiogram Surgeon: Dr. Landin Farmer Cash Grain: Dr. Mitchell Anesthesia type: General endotracheal anesthesia Estimated blood loss: 10 cc Specimen: Gallbladder and stone Procedure: Patient is taken to the OR and after timeout are completed the abdomen was prepped with ChloraPrep and draped in a sterile fashion. A 5 mm incision is made in the right subcostal position midclavicular line. A 5 mm Visiport is used to gain access to the peritoneal cavity. Abdomen is insufflated with CO2. 2 additional 5 mm ports were placed one in the right lateral subcostal position and one in a supraumbilical position. In the subxiphoid position a 12 mm port is placed. Later in the case a 3rd 5mm port was placed in the luq. Gallbladder graspers are used through the right subcostal ports. Adhesions over the top of the liver on the right side are noted. The suction aspirator is used to aspirate white bile confirming empyema of the gall bladder. The gallbladder was retracted superiorly anteriorly and laterally. The peritoneal reflection and adventitia are dissected with a cautery hook and the harmonic scalpel to expose the cystic duct and cystic artery as well as the cystic cleft. Critical view of safety is demonstrated. The cystic artery is clipped and divided. A clip was placed on the cystic duct at its junction with the gallbladder. 3 clips were placed on the distal cystic duct. The cystic duct was then divided. The gallbladder was dissected off the gallbladder fossa It was then extracted after being placed in a specimen bag through the subxiphoid port. Hemostasis is good as and is improved with the electrocautery hook. The right upper quadrant irrigated with copious amounts of saline and then aspirated. Sponge and needle counts are noted to be correct at this time. A [place] system was used to close the subxiphoid incision with an 0 Vicryl suture. The skin is closed with 4-0 Monocryl and Dermabond. Patient tolerated procedure well.
[2021-12-06] MEDS: HYDROmorphone 1 MG/1 ML INJ IV PRN ×3 (09:38→11:16)
[2021-12-06] MEDS: FAMOTIDINE 20 MG/2 ML INJ IV SCH ×2 (11:16→21:04)
--- NOTE | 2021-12-06 13:26 | Discharge Summary ---
Providers - Providers Date of Admission: 12/04/21 18:54 Attending physician: LAILA KEENE MD 12/04/21 17:21 Consult to Physician [CONS] Stat Comment: Consulting Provider: BIANCA VAZQUEZ Physician Instructions: Reason For Exam: gall stones Primary care physician: KATLYN DAS Hospitalization Condition: Stable Disposition: 30 STILL A PATIENT Exam - Constitutional Vitals: Temp Pulse Resp BP Pulse Ox 97.1 F L 82 14 113/69 96 12/06/21 10:00 12/06/21 10:00 12/06/21 10:00 12/06/21 10:00 12/06/21 10:30 Plan Care Plan Goals: Please follow-up with your primary care doctor. Please schedule an appointment with Dr. Vazquez for follow-up within 1 to 2 weeks. Follow up with: KATLYN DAS MD [Primary Care Provider] - 7 Days BIANCA VAZQUEZ MD [Staff Physician] - 14 Days Forms: Work/School Release Form Prescriptions: Oxycodone HCl/Acetaminophen [Oxycodone-Acetaminophen 5-300] 1 each PO Q6H PRN 3 Days #12 tab PRN Reason: Pain, Moderate (4-6) Ondansetron (Nf) [Zofran TAB] 8 mg PO Q8HR PRN 3 Days #9 tablet PRN Reason: Nausea
--- NOTE | 2021-12-06 13:50 | Progress Note ---
Assessment and Plan Assessment and plan: #Acute cholecystitis #Sepsis secondary to acute cholecystitis- resolving Abdominal ultrasound revealing cholelithiasis without acute cholecystitis s/p lap cholecystectomy this morning Continue Zosyn 4.5 g every 8 hours Continue IV fluid resuscitation, antiemetics, and analgesics as needed Continue to monitor #Obesity #Weight loss counseling #Exercise counseling - BMI 32.1 - Counseled patient on the importance of weight loss, incorporating exercise, and dietary changes (lean meats, fresh fruits and vegetables, and water intake). Patient expresses understanding. - Time: +15 min #Advanced care planning -Disease education conducted, care plan discussed, diagnoses discussed, prognosis discussed, and patient and Aunt acknowledges understanding with care plan -Time: +30 min #Discharge planning -intend to discharge patient within next 24-48 hours pending clinical improvement and diet tolerance Disposition Plan: home with family History Interval history: Patient seen and examined after surgery. Reports abdominal pain that improved with pain medications. Patient was seen later in the day after lunch. Did not tolerate food and continues to be nauseous. Hospitalist Physical - Physical exam Narrative exam: GENERAL: Well-developed well-nourished. In no acute distress. HEENT: Normocephalic. Atraumatic. NECK: Supple. CHEST/LUNGS: CTAB on room air HEART/CARDIOVASCULAR: RRR. No murmur, rubs or gallops appreciated. ABDOMEN: +BS. Mildly tender to palpation SKIN: No rashes noted. NEURO: No focal motor deficit. Follows all commands. MUSCULOSKELETAL: No joint effusion EXTREMITIES: No cyanosis, clubbing or edema. PSYCH: Cooperative. - Constitutional Vitals: Temp Pulse Resp BP Pulse Ox 97.1 F L 82 14 113/69 96 12/06/21 10:00 12/06/21 10:00 12/06/21 10:00 12/06/21 10:00 12/06/21 10:30 General appearance: Present: mild distress, well-nourished, obese Results - Labs CBC & Chem 7: 12/06/21 05:27 12/06/21 05:27 Labs: Laboratory Last Values WBC 9.4 K/mm3 (4.5-11.0) 12/06/21 05:27 RBC 3.68 M/mm3 (3.65-5.03) 12/06/21 05:27 Hgb 11.6 gm/dl (10.1-14.3) 12/06/21 05:27 Hct 34.2 % (30.3-42.9) 12/06/21 05:27 MCV 93 fl (79-97) 12/06/21 05:27 MCH 32 pg (28-32) 12/06/21 05:27 MCHC 34 % (30-34) 12/06/21 05:27 RDW 13.7 % (13.2-15.2) 12/06/21 05:27 Plt Count 371 K/mm3 (140-440) 12/06/21 05:27 Lymph % (Auto) 23.4 % (13.4-35.0) 12/06/21 05:27 [place] % (Auto) 8.2 % (0.0-7.3) H 12/06/21 05:27 Eos % (Auto) 1.8 % (0.0-4.3) 12/06/21 05:27 Baso % (Auto) 0.7 % (0.0-1.8) 12/06/21 05:27 Lymph # (Auto) 2.2 K/mm3 (1.2-5.4) 12/06/21 05:27 [place] # (Auto) 0.8 K/mm3 (0.0-0.8) 12/06/21 05:27 Eos # (Auto) 0.2 K/mm3 (0.0-0.4) 12/06/21 05:27 Baso # (Auto) 0.1 K/mm3 (0.0-0.1) 12/06/21 05:27 Add Manual Diff Complete 12/04/21 16:03 Total Counted 100 12/04/21 16:03 Seg Neutrophils % 65.9 % (40.0-70.0) 12/06/21 05:27 Seg Neuts % (Manual) 89.0 % (40.0-70.0) H 12/04/21 16:03 Band Neutrophils % 1.0 % 12/04/21 16:03 Lymphocytes % (Manual) 8.0 % (13.4-35.0) L 12/04/21 16:03 Reactive Lymphs % (Man) 0 % 12/04/21 16:03 Monocytes % (Manual) 2.0 % (0.0-7.3) 12/04/21 16:03 Eosinophils % (Manual) 0 % (0.0-4.3) 12/04/21 16:03 Basophils % (Manual) 0 % (0.0-1.8) 12/04/21 16:03 Metamyelocytes % 0 % 12/04/21 16:03 Myelocytes % 0 % 12/04/21 16:03 Promyelocytes % 0 % 12/04/21 16:03 Blast Cells % 0 % 12/04/21 16:03 Nucleated RBC % Not Reportable 12/04/21 16:03 Seg Neutrophils # 6.2 K/mm3 (1.8-7.7) 12/06/21 05:27 Seg Neutrophils # Man 17.2 K/mm3 (1.8-7.7) H 12/04/21 16:03 Band Neutrophils # 0.2 K/mm3 12/04/21 16:03 Lymphocytes # (Manual) 1.5 K/mm3 (1.2-5.4) 12/04/21 16:03 Abs React Lymphs (Man) 0.0 K/mm3 12/04/21 16:03 Monocytes # (Manual) 0.4 K/mm3 (0.0-0.8) 12/04/21 16:03 Eosinophils # (Manual) 0.0 K/mm3 (0.0-0.4) 12/04/21 16:03 Basophils # (Manual) 0.0 K/mm3 (0.0-0.1) 12/04/21 16:03 Metamyelocytes # 0.0 K/mm3 12/04/21 16:03 Myelocytes # 0.0 K/mm3 12/04/21 16:03 Promyelocytes # 0.0 K/mm3 12/04/21 16:03 Blast Cells # 0.0 K/mm3 12/04/21 16:03 WBC Morphology Not Reportable 12/04/21 16:03 Hypersegmented Neuts Not Reportable 12/04/21 16:03 Hyposegmented Neuts Not Reportable 12/04/21 16:03 Hypogranular Neuts Not Reportable 12/04/21 16:03 Smudge Cells Not Reportable 12/04/21 16:03 Toxic Granulation Not Reportable 12/04/21 16:03 Toxic Vacuolation Not Reportable 12/04/21 16:03 Dohle Bodies Not Reportable 12/04/21 16:03 Pelger-Huet Anomaly Not Reportable 12/04/21 16:03 Kimi Rods Not Reportable 12/04/21 16:03 Platelet Estimate Consistent w auto 12/04/21 16:03 Clumped Platelets Rare 12/04/21 16:03 Plt Clumps, EDTA Not Reportable 12/04/21 16:03 Large Platelets Not Reportable 12/04/21 16:03 Giant Platelets Not Reportable 12/04/21 16:03 Platelet Satelliting Not Reportable 12/04/21 16:03 Plt Morphology Comment Not Reportable 12/04/21 16:03 RBC Morphology Normal 12/04/21 16:03 Dimorphic RBCs Not Reportable 12/04/21 16:03 Polychromasia Not Reportable 12/04/21 16:03 Hypochromasia Not Reportable 12/04/21 16:03 Poikilocytosis Not Reportable 12/04/21 16:03 Anisocytosis Not Reportable 12/04/21 16:03 Microcytosis Not Reportable 12/04/21 16:03 Macrocytosis Not Reportable 12/04/21 16:03 Spherocytes Not Reportable 12/04/21 16:03 Pappenheimer Bodies Not Reportable 12/04/21 16:03 Sickle Cells Not Reportable 12/04/21 16:03 Target Cells Not Reportable 12/04/21 16:03 Tear Drop Cells Not Reportable 12/04/21 16:03 Ovalocytes Not Reportable 12/04/21 16:03 Helmet Cells Not Reportable 12/04/21 16:03 Kay-Pala Bodies Not Reportable 12/04/21 16:03 [place] Rings Not Reportable 12/04/21 16:03 Leon Cells Not Reportable 12/04/21 16:03 Bite Cells Not Reportable 12/04/21 16:03 Crenated Cell Not Reportable 12/04/21 16:03 Elliptocytes Not Reportable 12/04/21 16:03 Acanthocytes (Spur) Not Reportable 12/04/21 16:03 Rouleaux Not Reportable 12/04/21 16:03 Hemoglobin C Crystals Not Reportable 12/04/21 16:03 Schistocytes Not Reportable 12/04/21 16:03 Malaria parasites Not Reportable 12/04/21 16:03 Dima Bodies Not Reportable 12/04/21 16:03 Hem Pathologist Commnt No 12/04/21 16:03 PT 14.0 Sec. (12.2-14.9) 12/06/21 05:27 INR 0.97 (0.87-1.13) 12/06/21 05:27 Sodium 138 mmol/L (137-145) 12/06/21 05:27 Potassium 3.3 mmol/L (3.6-5.0) L 12/06/21 05:27 Chloride 105.5 mmol/L (98-107) 12/06/21 05:27 Carbon Dioxide 25 mmol/L (22-30) 12/06/21 05:27 Anion Gap 11 mmol/L 12/06/21 05:27 BUN 4 mg/dL (7-17) L 12/06/21 05:27 Creatinine 0.7 mg/dL (0.6-1.2) 12/06/21 05:27 Estimated GFR > 60 ml/min 12/06/21 05:27 BUN/Creatinine Ratio 6 % 12/06/21 05:27 Glucose 90 mg/dL (65-100) 12/06/21 05:27 Calcium 8.4 mg/dL (8.4-10.2) 12/06/21 05:27 Total Bilirubin 0.50 mg/dL (0.1-1.2) 12/05/21 05:44 Direct Bilirubin < 0.2 mg/dL (0-0.2) 12/04/21 16:03 Indirect Bilirubin 0.2 mg/dL 12/04/21 16:03 AST 15 units/L (5-40) 12/05/21 05:44 ALT 11 units/L (7-56) 12/05/21 05:44 Alkaline Phosphatase 46 units/L (35-129) 12/05/21 05:44 C-Reactive Protein 0.20 mg/dL (0.00-1.30) 12/04/21 16:03 Total Protein 6.5 g/dL (6.3-8.2) 12/05/21 05:44 Albumin 3.7 g/dL (3.9-5) L 12/05/21 05:44 Albumin/Globulin Ratio 1.3 % 12/05/21 05:44 Amylase 69 units/L (27-131) 12/04/21 16:03 Lipase 17 units/L (13-60) 12/04/21 16:03 HCG, Qual Negative (Negative) 12/04/21 16:03 Urine Color Yellow (Yellow) 12/04/21 19:38 Urine Turbidity Cloudy (Clear) 12/04/21 19:38 Urine pH 8.0 (5.0-7.0) H 12/04/21 19:38 Ur Specific [place] 1.021 (1.003-1.030) 12/04/21 19:38 Urine Protein <15 mg/dl mg/dL (Negative) 12/04/21 19:38 Urine Glucose (UA) 50 mg/dL (Negative) 12/04/21 19:38 Urine Ketones Neg mg/dL (Negative) 12/04/21 19:38 Urine Blood Lg (Negative) 12/04/21 19:38 Urine Nitrite Neg (Negative) 12/04/21 19:38 Urine Bilirubin Neg (Negative) 12/04/21 19:38 Urine Urobilinogen < 2.0 mg/dL (<2.0) 12/04/21 19:38 Ur Leukocyte Esterase Tr (Negative) 12/04/21 19:38 Urine WBC (Auto) 6.0 /HPF (0.0-6.0) 12/04/21 19:38 Urine RBC (Auto) 1.0 /HPF (0.0-6.0) 12/04/21 19:38 U Epithel Cells (Auto) 107.0 /HPF (0-13.0) H 12/04/21 19:38 Urine Bacteria (Auto) 1+ /HPF (Negative) 12/04/21 19:38 Urine Mucus Few /HPF 12/04/21 19:38 Urine HCG, Qual Negative (Negative) 12/04/21 19:38 Microbiology: Microbiology 12/06/21 Unknown Gallbladder Fluid Surgical Culture - Preliminary Fatima/IV: Voiding Method Toilet Active Medications - Current Medications Current Medications: Generic Name Dose Route Start Last Admin Trade Name Freq PRN Reason Stop Dose Admin Acetaminophen 650 mg 12/04/21 18:54 Acetaminophen 325 Mg Tab PO Q4H PRN Pain MILD(1-3)/Fever >100.5/FLORES Famotidine 20 mg 12/04/21 22:00 12/06/21 11:16 Famotidine 20 Mg/2 Ml Inj IV 20 mg BID JOSH Administration Heparin Sodium (Porcine) 5,000 unit 12/04/21 22:00 12/06/21 09:00 Heparin 5,000 Unit/1 Ml Vial SUB-Q Not Given Q12HR JOSH Hydromorphone HCl 0.5 mg 12/04/21 18:54 12/06/21 11:16 Hydromorphone 1 Mg/1 Ml Inj IV 0.5 mg Q3H PRN Administration Pain , Severe (7-10) Hydromorphone HCl 0.5 mg 12/06/21 07:36 12/06/21 09:48 Hydromorphone 1 Mg/1 Ml Inj IV 12/06/21 23:00 0.5 mg Q10MIN PRN Administration Pain , Severe (7-10) Dextrose/Sodium Chloride 1,000 mls @ 75 mls/hr 12/04/21 19:00 12/05/21 21:05 D5ns IV 75 mls/hr DIRECT JOSH Administration Piperacillin Sod/Tazobactam Sod 4.5 gm in 100 mls @ 200 mls/hr 12/04/21 22:00 12/06/21 05:39 Zosyn/Ns 4.5gm/100ml IV 200 mls/hr Q8HR JOSH Administration Protocol Lactated Ringer's 1,000 mls @ 100 mls/hr 12/06/21 07:45 12/06/21 07:55 Lactated Ringers IV 12/07/21 07:44 100 mls/hr DIRECT JOSH Administration Metoclopramide HCl 10 mg 12/04/21 18:54 Metoclopramide 10 Mg/2 Ml Inj IV Q6H PRN Nausea And Vomiting Midazolam HCl 2 mg 12/06/21 08:00 Midazolam 2 Mg/2 Ml Inj IV 12/06/21 23:59 PREOP NR Morphine Sulfate 2 mg 12/04/21 18:54 12/06/21 05:42 Morphine 2 Mg/1 Ml Inj IV 2 mg Q4H PRN Administration Pain, Moderate (4-6) Ondansetron HCl 4 mg 12/04/21 18:54 12/06/21 13:36 Ondansetron 4 Mg/2 Ml Inj IV 4 mg Q3H PRN Administration Nausea And Vomiting Ondansetron HCl 4 mg 12/06/21 07:36 Ondansetron 4 Mg/2 Ml Inj IV 12/06/21 18:00 ONCE PRN Nausea And Vomiting Potassium Chloride 40 meq 12/06/21 09:00 12/06/21 11:16 Potassium Chloride Er 20 Meq Tab PO 12/06/21 14:00 40 meq ONCE@0900 NR Administration Scopolamine 1 each 12/06/21 08:00 12/06/21 07:58 Scopolamine Transdermal Patch 72 Hr TD 12/06/21 18:00 1 each PREOP NR Administration Sodium Chloride 10 ml 12/04/21 22:00 12/06/21 11:17 Sodium Chloride 0.9% 10 Ml Flush Syringe IV 10 ml BID JOSH Administration Sodium Chloride 10 ml 12/04/21 18:54 Sodium Chloride 0.9% 10 Ml Flush Syringe IV PRN PRN LINE FLUSH
--- NOTE | 2021-12-06 15:27 | Post Anesthesia Evaluation ---
- Post Anesthesia Evaluation Patient Participated: Yes Airway Patent: Yes Stable Respiratory Function: Yes Nausea/Vomiting: No Temp > 96.8F: Yes Pain Manageable: Yes Adequeate Hydration: Yes Anesthesia Complications: No
[2021-12-07] MEDS: MORPHINE 2 MG/1 ML INJ IV PRN ×3 (01:29→21:52)
[2021-12-07 06:10] LABS: Blood Urea Nitrogen 6 mg/dL (7-17); Calcium 7.7 mg/dL (8.4-10.2); Hemolysis Index 4
[2021-12-07 06:18] LABS: BUN/Creatinine Ratio 9
[2021-12-07] MEDS: PIPERACIL/TAZOBACTA 4.5/NS 100 4.5 GM/100 ML VIAL IV SCH ×3 (06:40→22:00)
--- NOTE | 2021-12-07 08:32 | Progress Note ---
Assessment and Plan Cholecystitis with cholelithiasis markedly elevated white count. Status post laparoscopic cholecystectomy postop day 1 patient with postop nausea vomiting last night. If she has a better day today she can be discharged today. Subjective Date of service: 12/07/21 Patient Reports: Positive: still having pain Narrative: Patient status post laparoscopic cholecystectomy for gallbladder empyema yesterday. She had some nausea and vomiting with soft diet last night. She notes some abdominal pain this morning. No nausea but she is with anorexia. Objective Vital Signs - 12hr 12/06/21 12/06/21 12/07/21 22:30 23:33 04:27 Temperature 98.6 F 98.6 F Pulse Rate 94 H 98 H Respiratory 16 18 16 Rate Blood Pressure 108/69 104/64 O2 Sat by Pulse 98 100 95 Oximetry 12/07/21 07:59 Temperature Pulse Rate Respiratory Rate Blood Pressure O2 Sat by Pulse 97 Oximetry - Labs 12/06/21 05:27 12/07/21 05:17 Diabetes panel 12/07/21 Range/Units 05:17 Sodium 142 (137-145) mmol/L Potassium 3.7 (3.6-5.0) mmol/L Chloride 109.7 H (98-107) mmol/L Carbon Dioxide 24 (22-30) mmol/L BUN 6 L (7-17) mg/dL Creatinine 0.7 (0.6-1.2) mg/dL Glucose 129 H (65-100) mg/dL Calcium 7.7 L (8.4-10.2) mg/dL Calcium panel 12/07/21 Range/Units 05:17 Calcium 7.7 L (8.4-10.2) mg/dL Pituitary panel 12/07/21 Range/Units 05:17 Sodium 142 (137-145) mmol/L Potassium 3.7 (3.6-5.0) mmol/L Chloride 109.7 H (98-107) mmol/L Carbon Dioxide 24 (22-30) mmol/L BUN 6 L (7-17) mg/dL Creatinine 0.7 (0.6-1.2) mg/dL Glucose 129 H (65-100) mg/dL Calcium 7.7 L (8.4-10.2) mg/dL Adrenal panel 12/07/21 Range/Units 05:17 Sodium 142 (137-145) mmol/L Potassium 3.7 (3.6-5.0) mmol/L Chloride 109.7 H (98-107) mmol/L Carbon Dioxide 24 (22-30) mmol/L BUN 6 L (7-17) mg/dL Creatinine 0.7 (0.6-1.2) mg/dL Glucose 129 H (65-100) mg/dL Calcium 7.7 L (8.4-10.2) mg/dL
[2021-12-07] MEDS: FAMOTIDINE 20 MG TAB PO SCH ×2 (10:15→22:01)
[2021-12-07] MEDS: HEPARIN 5,000 UNIT/1 ML VIAL SUB-Q SCH ×2 (10:16→22:01)
--- NOTE | 2021-12-07 14:37 | Progress Note ---
Assessment and Plan Assessment and plan: #Acute cholecystitis #Sepsis secondary to acute cholecystitis- resolving Abdominal ultrasound revealing cholelithiasis without acute cholecystitis s/p lap cholecystectomy this morning Continue Zosyn 4.5 g every 8 hours Continue IV fluid resuscitation, antiemetics, and analgesics as needed Continue to monitor #Advanced care planning -Disease education conducted, care plan discussed, diagnoses discussed, prognosis discussed, and patient and Aunt acknowledges understanding with care plan -Time: +30 min #Discharge planning -intend to discharge patient within next 24-48 hours pending clinical improvement and diet tolerance History Interval history: No acute events overnight. Patient continues to not feel well. She has only been able to tolerate liquids so far, will advance to regular diet today. Hospitalist Physical - Physical exam Narrative exam: GENERAL: Well-developed well-nourished. In no acute distress. HEENT: Normocephalic. Atraumatic. NECK: Supple. CHEST/LUNGS: CTAB on room air HEART/CARDIOVASCULAR: RRR. No murmur, rubs or gallops appreciated. ABDOMEN: +BS. Mildly tender to palpation NEURO: No focal motor deficit. Follows all commands. MUSCULOSKELETAL: No joint effusion EXTREMITIES: No cyanosis, clubbing or edema. PSYCH: Cooperative. - Constitutional Vitals: Temp Pulse Resp BP Pulse Ox 99.3 F 82 20 115/78 95 12/07/21 10:51 12/07/21 10:51 12/07/21 10:51 12/07/21 10:51 12/07/21 10:51 General appearance: Present: mild distress, well-nourished, obese Results - Labs CBC & Chem 7: 12/06/21 05:27 12/07/21 05:17 Labs: Laboratory Last Values WBC 9.4 K/mm3 (4.5-11.0) 12/06/21 05:27 RBC 3.68 M/mm3 (3.65-5.03) 12/06/21 05:27 Hgb 11.6 gm/dl (10.1-14.3) 12/06/21 05:27 Hct 34.2 % (30.3-42.9) 12/06/21 05:27 MCV 93 fl (79-97) 12/06/21 05:27 MCH 32 pg (28-32) 12/06/21 05:27 MCHC 34 % (30-34) 12/06/21 05: RDW 13.7 % (13.2-15.2) 12/06/21 05:27 Plt Count 371 K/mm3 (140-440) 12/06/21 05:27 Lymph % (Auto) 23.4 % (13.4-35.0) 12/06/21 05:27 [place] % (Auto) 8.2 % (0.0-7.3) H 12/06/21 05:27 Eos % (Auto) 1.8 % (0.0-4.3) 12/06/21 05:27 Baso % (Auto) 0.7 % (0.0-1.8) 12/06/21 05:27 Lymph # (Auto) 2.2 K/mm3 (1.2-5.4) 12/06/21 05:27 [place] # (Auto) 0.8 K/mm3 (0.0-0.8) 12/06/21 05:27 Eos # (Auto) 0.2 K/mm3 (0.0-0.4) 12/06/21 05:27 Baso # (Auto) 0.1 K/mm3 (0.0-0.1) 12/06/21 05:27 Add Manual Diff Complete 12/04/21 16:03 Total Counted 100 12/04/21 16:03 Seg Neutrophils % 65.9 % (40.0-70.0) 12/06/21 05:27 Seg Neuts % (Manual) 89.0 % (40.0-70.0) H 12/04/21 16:03 Band Neutrophils % 1.0 % 12/04/21 16:03 Lymphocytes % (Manual) 8.0 % (13.4-35.0) L 12/04/21 16:03 Reactive Lymphs % (Man) 0 % 12/04/21 16:03 Monocytes % (Manual) 2.0 % (0.0-7.3) 12/04/21 16:03 Eosinophils % (Manual) 0 % (0.0-4.3) 12/04/21 16:03 Basophils % (Manual) 0 % (0.0-1.8) 12/04/21 16:03 Metamyelocytes % 0 % 12/04/21 16:03 Myelocytes % 0 % 12/04/21 16:03 Promyelocytes % 0 % 12/04/21 16:03 Blast Cells % 0 % 12/04/21 16:03 Nucleated RBC % Not Reportable 12/04/21 16:03 Seg Neutrophils # 6.2 K/mm3 (1.8-7.7) 12/06/21 05:27 Seg Neutrophils # Man 17.2 K/mm3 (1.8-7.7) H 12/04/21 16:03 Band Neutrophils # 0.2 K/mm3 12/04/21 16:03 Lymphocytes # (Manual) 1.5 K/mm3 (1.2-5.4) 12/04/21 16:03 Abs React Lymphs (Man) 0.0 K/mm3 12/04/21 16:03 Monocytes # (Manual) 0.4 K/mm3 (0.0-0.8) 12/04/21 16:03 Eosinophils # (Manual) 0.0 K/mm3 (0.0-0.4) 12/04/21 16:03 Basophils # (Manual) 0.0 K/mm3 (0.0-0.1) 12/04/21 16:03 Metamyelocytes # 0.0 K/mm3 12/04/21 16:03 Myelocytes # 0.0 K/mm3 12/04/21 16:03 Promyelocytes # 0.0 K/mm3 12/04/21 16:03 Blast Cells # 0.0 K/mm3 12/04/21 16:03 WBC Morphology Not Reportable 12/04/21 16:03 Hypersegmented Neuts Not Reportable 12/04/21 16:03 Hyposegmented Neuts Not Reportable 12/04/21 16:03 Hypogranular Neuts Not Reportable 12/04/21 16:03 Smudge Cells Not Reportable 12/04/21 16:03 Toxic Granulation Not Reportable 12/04/21 16:03 Toxic Vacuolation Not Reportable 12/04/21 16:03 Dohle Bodies Not Reportable 12/04/21 16:03 Pelger-Huet Anomaly Not Reportable 12/04/21 16:03 Kimi Rods Not Reportable 12/04/21 16:03 Platelet Estimate Consistent w auto 12/04/21 16:03 Clumped Platelets Rare 12/04/21 16:03 Plt Clumps, EDTA Not Reportable 12/04/21 16:03 Large Platelets Not Reportable 12/04/21 16:03 Giant Platelets Not Reportable 12/04/21 16:03 Platelet Satelliting Not Reportable 12/04/21 16:03 Plt Morphology Comment Not Reportable 12/04/21 16:03 RBC Morphology Normal 12/04/21 16:03 Dimorphic RBCs Not Reportable 12/04/21 16:03 Polychromasia Not Reportable 12/04/21 16:03 Hypochromasia Not Reportable 12/04/21 16:03 Poikilocytosis Not Reportable 12/04/21 16:03 Anisocytosis Not Reportable 12/04/21 16:03 Microcytosis Not Reportable 12/04/21 16:03 Macrocytosis Not Reportable 12/04/21 16:03 Spherocytes Not Reportable 12/04/21 16:03 Pappenheimer Bodies Not Reportable 12/04/21 16:03 Sickle Cells Not Reportable 12/04/21 16:03 Target Cells Not Reportable 12/04/21 16:03 Tear Drop Cells Not Reportable 12/04/21 16:03 Ovalocytes Not Reportable 12/04/21 16:03 Helmet Cells Not Reportable 12/04/21 16:03 Kay-Mio Bodies Not Reportable 12/04/21 16:03 [place] Rings Not Reportable 12/04/21 16:03 [place] Cells Not Reportable 12/04/21 16:03 Bite Cells Not Reportable 12/04/21 16:03 Crenated Cell Not Reportable 12/04/21 16:03 Elliptocytes Not Reportable 12/04/21 16:03 Acanthocytes (Spur) Not Reportable 12/04/21 16:03 Rouleaux Not Reportable 12/04/21 16:03 Hemoglobin C Crystals Not Reportable 12/04/21 16:03 Schistocytes Not Reportable 12/04/21 16:03 Malaria parasites Not Reportable 12/04/21 16:03 Dima Bodies Not Reportable 12/04/21 16:03 Hem Pathologist Commnt No 12/04/21 16:03 PT 14.0 Sec. (12.2-14.9) 12/06/21 05:27 INR 0.97 (0.87-1.13) 12/06/21 05:27 Sodium 142 mmol/L (137-145) 12/07/21 05:17 Potassium 3.7 mmol/L (3.6-5.0) 12/07/21 05:17 Chloride 109.7 mmol/L (98-107) H 12/07/21 05:17 Carbon Dioxide 24 mmol/L (22-30) 12/07/21 05:17 Anion Gap 12 mmol/L 12/07/21 05:17 BUN 6 mg/dL (7-17) L 12/07/21 05:17 Creatinine 0.7 mg/dL (0.6-1.2) 12/07/21 05:17 Estimated GFR > 60 ml/min 12/07/21 05:17 BUN/Creatinine Ratio 9 % 12/07/21 05:17 Glucose 129 mg/dL (65-100) H 12/07/21 05:17 Calcium 7.7 mg/dL (8.4-10.2) L 12/07/21 05:17 Total Bilirubin 0.50 mg/dL (0.1-1.2) 12/05/21 05:44 Direct Bilirubin < 0.2 mg/dL (0-0.2) 12/04/21 16:03 Indirect Bilirubin 0.2 mg/dL 12/04/21 16:03 AST 15 units/L (5-40) 12/05/21 05:44 ALT 11 units/L (7-56) 12/05/21 05:44 Alkaline Phosphatase 46 units/L (35-129) 12/05/21 05:44 C-Reactive Protein 0.20 mg/dL (0.00-1.30) 12/04/21 16:03 Total Protein 6.5 g/dL (6.3-8.2) 12/05/21 05:44 Albumin 3.7 g/dL (3.9-5) L 12/05/21 05:44 Albumin/Globulin Ratio 1.3 % 12/05/21 05:44 Amylase 69 units/L (27-131) 12/04/21 16:03 Lipase 17 units/L (13-60) 12/04/21 16:03 HCG, Qual Negative (Negative) 12/04/21 16:03 Urine Color Yellow (Yellow) 12/04/21 19:38 Urine Turbidity Cloudy (Clear) 12/04/21 19:38 Urine pH 8.0 (5.0-7.0) H 12/04/21 19:38 Ur Specific [place] 1.021 (1.003-1.030) 12/04/21 19:38 Urine Protein <15 mg/dl mg/dL (Negative) 12/04/21 19:38 Urine Glucose (UA) 50 mg/dL (Negative) 12/04/21 19:38 Urine Ketones Neg mg/dL (Negative) 12/04/21 19:38 Urine Blood Lg (Negative) 12/04/21 19:38 Urine Nitrite Neg (Negative) 12/04/21 19:38 Urine Bilirubin Neg (Negative) 12/04/21 19:38 Urine Urobilinogen < 2.0 mg/dL (<2.0) 12/04/21 19:38 Ur Leukocyte Esterase Tr (Negative) 12/04/21 19:38 Urine WBC (Auto) 6.0 /HPF (0.0-6.0) 12/04/21 19:38 Urine RBC (Auto) 1.0 /HPF (0.0-6.0) 12/04/21 19:38 U Epithel Cells (Auto) 107.0 /HPF (0-13.0) H 12/04/21 19:38 Urine Bacteria (Auto) 1+ /HPF (Negative) 12/04/21 19:38 Urine Mucus Few /HPF 12/04/21 19:38 Urine HCG, Qual Negative (Negative) 12/04/21 19:38 Microbiology: Microbiology 12/06/21 Unknown Gallbladder Fluid Surgical Culture - Preliminary Fatima/IV: Voiding Method Toilet Active Medications - Current Medications Current Medications: Generic Name Dose Route Start Last Admin Trade Name Freq PRN Reason Stop Dose Admin Acetaminophen 650 mg 12/04/21 18:54 Acetaminophen 325 Mg Tab PO Q4H PRN Pain MILD(1-3)/Fever >100.5/FLORES Famotidine 20 mg 12/07/21 10:00 12/07/21 10:15 Famotidine 20 Mg Tab PO 20 mg BID JOSH Administration Heparin Sodium (Porcine) 5,000 unit 12/04/21 22:00 12/07/21 10:16 Heparin 5,000 Unit/1 Ml Vial SUB-Q 5,000 unit Q12HR JOSH Administration Hydromorphone HCl 0.5 mg 12/04/21 18:54 12/06/21 11:16 Hydromorphone 1 Mg/1 Ml Inj IV 0.5 mg Q3H PRN Administration Pain , Severe (7-10) Piperacillin Sod/Tazobactam Sod 4.5 gm in 100 mls @ 200 mls/hr 12/04/21 22:00 12/07/21 13:07 Zosyn/Ns 4.5gm/100ml IV 200 mls/hr Q8HR JOSH Administration Protocol Metoclopramide HCl 10 mg 12/04/21 18:54 12/07/21 01:29 Metoclopramide 10 Mg/2 Ml Inj IV 10 mg Q6H PRN Administration Nausea And Vomiting Morphine Sulfate 2 mg 12/04/21 18:54 12/07/21 06:40 Morphine 2 Mg/1 Ml Inj IV 2 mg Q4H PRN Administration Pain, Moderate (4-6) Ondansetron HCl 4 mg 12/04/21 18:54 12/06/21 13:36 Ondansetron 4 Mg/2 Ml Inj IV 4 mg Q3H PRN Administration Nausea And Vomiting Sodium Chloride 10 ml 12/04/21 22:00 12/07/21 10:16 Sodium Chloride 0.9% 10 Ml Flush Syringe IV 10 ml BID JOSH Administration Sodium Chloride 10 ml 12/04/21 18:54 Sodium Chloride 0.9% 10 Ml Flush Syringe IV PRN PRN LINE FLUSH
[2021-12-08] MEDS: PIPERACIL/TAZOBACTA 4.5/NS 100 4.5 GM/100 ML VIAL IV SCH (05:41)
[2021-12-08] MEDS: HEPARIN 5,000 UNIT/1 ML VIAL SUB-Q SCH (10:53)
[2021-12-08] MEDS: FAMOTIDINE 20 MG TAB PO SCH (10:53)
[2021-12-08] MEDS: MORPHINE 2 MG/1 ML INJ IV PRN (11:36)
[2021-12-08 12:55] VITALS: BP 118/79
== END 2021-12-08 14:49 | disposition home or self-care (01) | DRG 854 ==
LOC: ED 15:44 → 3A 18:54
PROVIDERS: ADMIT Internal Medicine; ATTEND Student in an Organized Health Care Education/Training Program
PROC: 0FT44ZZ Resection of Gallbladder, Percutaneous Endoscopic Approach (ICD-10-PCS; principal; 2021-12-06)
DX: A41.9 Sepsis, unspecified organism (principal); K80.00 Calculus of gallbladder with acute cholecystitis without obstruction; E87.1 Hypo-osmolality and hyponatremia; E66.9 Obesity, unspecified; Z71.3 Dietary counseling and surveillance; Z68.32 Body mass index [BMI] 32.0-32.9, adult; Z82.49 Family history of ischemic heart disease and other diseases of the circulatory system
CPT/HCPCS: 36415; 74177; 76705; 80048; 80053; 80076; 81001; 81025; 82150; 83690; 84703; 85007; 85025; 85610; 86140; 87116; 88304; 99406; G0378; J1815; J3490; J7120; Q0162; J1100; J1170; J1335; J1644; J2250; J2270; J2405; J2543; J2704; J2710; J2765; J3010; J7030; J7042; Q9967